=== PATIENT | female | born 1970 | race Caucasian/White ===

== ENCOUNTER 2017-08-04 16:03 | Observation (INO) ==
[2017-08-04] MEDS ORDERED: Aspirin 81 MG TAB.CHEW PO ONE (16:11)
[2017-08-04] MEDS ORDERED: Nitroglycerin 0.4 MG TAB.SUBL SL PRN (16:20)
[2017-08-04 17:07] LABS: Basophils # 0.1 K/mcL (0.0-0.2); Basophils % 0.5 %; Eosinophils # 0.5 K/mcL (0.0-0.6); Eosinophils % 5.1 %; Hematocrit 39.9 % (35.3-44.9); Hemoglobin 12.6 g/dL (11.5-15.4); Immature Granulocytes % 0.6 % (0-4); Immature Platelets 2.5 % (1.1-6.1); Lymphocytes # 2.5 K/mcL (0.6-4.6); Lymphocytes % 25.2 %; Mean Corpuscular HGB Conc 31.6 g/dL (31.6-35.5); Mean Corpuscular Hemoglobin 26.9 pg (28.0-33.3); Mean Corpuscular Volume 85.1 fL (83.0-100.0); Mean Platelet Volume 9.5 fL (9.4-12.4); Monocytes # 0.6 K/mcL (0.0-1.3); Monocytes % 5.5 %; Neutrophils # 6.3 K/mcL (1.6-8.9); Platelet Count 317 K/mcL (140-400); Red Blood Count 4.69 M/mcL (3.82-4.97); Red Cell Distribution Width 15.2 % (11.5-14.5); Segmented Neutrophils % 63.1 %
[2017-08-04 17:20] LABS: Alanine Aminotransferase 48 Units/L (0-55); Albumin 3.1 g/dL (3.5-5.0); Albumin/Globulin Ratio 0.6 (1.1-2.2); Alkaline Phosphatase 101 Units/L (38-126); Aspartate Amino Transferase 59 Units/L (5-34); BUN/Creatinine Ratio 10 (6-26); Bilirubin,Direct 0.2 mg/dL (0.0-0.5); Bilirubin,Indirect 0.2 mg/dL (0.0-1.2); Bilirubin,Total 0.4 mg/dL (0.2-1.2); Blood Urea Nitrogen 7 mg/dL (7-20); Carbon Dioxide 17 mEq/L (19-29); Chloride 105 mEq/L (98-109); Globulin 5.1 g/dL (2.4-3.5); Glucose 176 mg/dL (70-99); Lipase 56 Units/L (8-78); Osmolality,Calculated 288 (280-300); Potassium 3.6 mEq/L (3.5-4.5); Sodium 138 mEq/L (136-145); Total Protein 8.2 g/dL (6.0-8.3); eGFR For African Americans > 60 (> 60); eGFR For Non-African Americans > 60 (> 60)
--- NOTE | 2017-08-04 17:40 | Emergency Department Note ---
Disposition Clinical Impression: Chest wall pain, Unstable angina Chest pain Qualifiers: Chest pain type: precordial pain Qualified Code(s): R07.2 - Precordial pain Disposition: Admitted As Inpatient Condition: Fair Referrals: Juanita Jain CNP [Primary Care Provider] - Forms: ED Satisfaction Letter Time of Disposition: 19:36 Chest Pain HPI - General Chief Complaint: ED Chest Pain Stated Complaint: CP Time Seen by Provider: 08/04/17 16:10 Source: patient Limitations: no limitations Vital Signs Reviewed: Yes Nursing Notes Reviewed: Yes - History of Present Illness HPI Narrative: 46-year-old female was chest pain. Parents today with exertional component and diaphoresis without radiation. Patient's had chest pain issues in the past and had stress tests 1 day ago. Severity scale (1-10): 0 - Related Data Home Medications Medication Instructions Recorded Confirmed Aspirin Enteric Coated [Aspirin EC] 81 mg PO QAM 07/01/15 08/04/17 Butalbital/Aspirin/Caffeine 1 cap PO Q4H PRN 07/01/15 08/04/17 [Fiorinal 50-325-40 mg Capsule] Lisinopril/Hydrochlorothiazide 1 tab PO QAM 07/01/15 08/04/17 [Zestoretic 20-12.5 mg Tablet] Metoprolol [Lopressor] 50 mg PO BID 07/01/15 08/04/17 Omeprazole [PriLOSEC] 20 mg PO BID 07/01/15 08/04/17 metFORMIN [Glucophage] 1,000 mg PO BID 07/01/15 08/04/17 Insulin ASPART [NovoLOG] 30 - 50 unit SQ TIDWM 08/04/17 08/04/17 Insulin Glargine,Hum.rec.anlog 50 unit SQ HS 08/04/17 08/04/17 [Lantus Solostar] Linagliptin [Tradjenta] 5 mg PO DAILY 08/04/17 08/04/17 Pioglitazone [Actos] 30 mg PO DAILY 08/04/17 08/04/17 Previous Rx's Medication Instructions Recorded Sucralfate [Carafate] 1 gm PO QIDAC #120 tablet 07/03/15 Ondansetron ODT [Zofran ODT] 4 mg SL Q4HR PRN #20 tab.rapdis 02/25/16 Allergies Allergy/AdvReac Type Severity Reaction Status Date / Time No Known Allergies Allergy Verified 08/04/17 16:09 Chest Pain PMH - Past Medical History Medical history: Reports: diabetes, hyperlipidemia, hypertension Surgical history: Reports: appendectomy, cholecystectomy, other (EGD-11/2014: no significant findings. ) Psychiatric history: Reports: no psych history - Social History Smoking Status: Never smoker Alcohol use: Reports: none Drug use: Reports: none Physical Exam - General Limitations: no limitations General appearance: alert, in no apparent distress Course Vital Signs Temperature 98.3 F 08/04/17 16:06 Pulse Rate 79 08/04/17 16:06 Respiratory Rate 18 08/04/17 16:06 Blood Pressure 124/83 08/04/17 16:06 O2 Sat by Pulse Oximetry 96 08/04/17 16:06 Temperature 98.3 F 08/04/17 16:06 Pulse Rate 76 08/04/17 18:57 Respiratory Rate 23 08/04/17 18:57 Blood Pressure 138/81 08/04/17 18:57 O2 Sat by Pulse Oximetry 95 08/04/17 18:57 Oxygen Delivery Oxygen Delivery Room Air Chest Pain - MDM Narrative Medical decision making narrative: Patient is presents with chest pain on exertion that persists for unstable angina/ACS/KS. Patient also has some epigastric pain concerning for possible pancreatitis. Patient was given 325 aspirin, nitroglycerin but still has pain which is down from 10/10-4/10 lower sternum that is tender to palpation. When patient does Toradol for possible chest wall pain as well and 4 mg morphine. Discussed with patient that she will need to be admitted for overnight observation. Patient accepts this is for admission. Patient's troponin was -0.00 and patient's EKG showed mild ST depression in leads V2, V3 and V4 with T-wave inversions. She remembers can be seen on previous EKG similar morphology taken 06/05/2015. Chest x-ray showed no acute findings. Heartscore 6 Dr. Blakely the hospitalist accepted patient for admission at 1919 hrs - Lab Data Lab results reviewed: Yes I reviewed the patient's lab results. Lab results narrative: Short CBC 08/04/17 Range/Units 16:58 WBC 10.0 (4.3-11.1) K/mcL Hgb 12.6 (11.5-15.4) g/dL Hct 39.9 (35.3-44.9) % Plt Count 317 (140-400) K/mcL Neutrophils # 6.3 (1.6-8.9) K/mcL BMP 08/04/17 Range/Units 16:58 Sodium 138 (136-145) mEq/L Potassium 3.6 (3.5-4.5) mEq/L Chloride 105 (98-109) mEq/L Carbon Dioxide 17 L (19-29) mEq/L BUN 7 (7-20) mg/dL Creatinine 0.72 (0.57-1.11) mg/dL Glucose 176 H (70-99) mg/dL Calcium 9.0 (8.6-10.8) mg/dL Cardiac Enzymes 08/04/17 Range/Units 16:58 Troponin I 0.00 (0-0.03) ng/mL Liver Function 08/04/17 Range/Units 16:58 Total Bilirubin 0.4 (0.2-1.2) mg/dL Direct Bilirubin 0.2 (0.0-0.5) mg/dL AST 59 H (5-34) Units/L ALT 48 (0-55) Units/L Alkaline Phosphatase 101 (38-126) Units/L Albumin 3.1 L (3.5-5.0) g/dL Result diagrams: 08/04/17 16:58 08/04/17 16:58 Lab Results 08/04/17 08/04/17 08/04/17 Range/Units 16:58 16:58 16:58 WBC 10.0 (4.3-11.1) K/mcL RBC 4.69 (3.82-4.97) M/mcL Hgb 12.6 (11.5-15.4) g/dL Hct 39.9 (35.3-44.9) % MCV 85.1 (83.0-100.0) fL MCH 26.9 L (28.0-33.3) pg MCHC 31.6 (31.6-35.5) g/dL RDW 15.2 H (11.5-14.5) % Plt Count 317 (140-400) K/mcL MPV 9.5 (9.4-12.4) fL Immature Gran % 0.6 (0-4) % Seg Neutrophils % 63.1 % Lymphocytes % 25.2 % Monocytes % 5.5 % Eosinophils % 5.1 % Basophils % 0.5 % Neutrophils # 6.3 (1.6-8.9) K/mcL Lymphocytes # 2.5 (0.6-4.6) K/mcL Monocytes # 0.6 (0.0-1.3) K/mcL Eosinophils # 0.5 (0.0-0.6) K/mcL Basophils # 0.1 (0.0-0.2) K/mcL Immature Plt Fraction 2.5 (1.1-6.1) % Sodium 138 (136-145) mEq/L Potassium 3.6 (3.5-4.5) mEq/L Chloride 105 (98-109) mEq/L Carbon Dioxide 17 L (19-29) mEq/L BUN 7 (7-20) mg/dL Creatinine 0.72 (0.57-1.11) mg/dL Est GFR ( Amer) > 60 (> 60) Est GFR (Non-Af Amer) > 60 (> 60) BUN/Creatinine Ratio 10 (6-26) Glucose 176 H (70-99) mg/dL Calculated Osmolality 288 (280-300) Calcium 9.0 (8.6-10.8) mg/dL Total Bilirubin 0.4 (0.2-1.2) mg/dL Direct Bilirubin 0.2 (0.0-0.5) mg/dL Indirect Bilirubin 0.2 (0.0-1.2) mg/dL AST 59 H (5-34) Units/L ALT 48 (0-55) Units/L Alkaline Phosphatase 101 (38-126) Units/L Troponin I 0.00 (0-0.03) ng/mL Serum Total Protein 8.2 (6.0-8.3) g/dL Albumin 3.1 L (3.5-5.0) g/dL Globulin 5.1 H (2.4-3.5) g/dL Albumin/Globulin Ratio 0.6 L (1.1-2.2) Lipase 56 (8-78) Units/L - Radiology Data Radiology results reviewed: Yes I reviewed the patient's radiology results. Abdomen/Pelvis CT 08/04/17 16:25 IMPRESSION: Negative noncontrast study. D/ / Jerica Neal Cha, MD / Jerica Neal Cha, MD Interpreting Provider: Jerica Neal Cha, MD Chest X-Ray 08/04/17 17:38 IMPRESSION: No acute process. D/ / Vincent Edmonds MD / Vincent Edmonds MD Interpreting Provider: Vincent Edmonds MD - EKG Data EKG attestation: Yes I reviewed and interpreted this EKG. EKG results narrative: EKG taken to August 2017 1613 hrs. shows a sinus rhythm at a rate of [address] depressions that are mild and V2 V3 and V4. Patient is seen with inversions in anterior leads which are seen on previous EKG taken at 07/02 Heart Score - Score History: Highly Suspicious EKG: Non Specific repolarisation Disturbance Age: 45-65 Risk Factors: Equal/Greater than 3 risk factor or history of atherosclerotic disease Troponin: Less than normal limit HEART Score Total: 6 Attestation Statement - Attestation Attestation: Patient was seen with resident physician. I reviewed the history, physical, assessment and plan, and agree with the findings. I also personally evaluated this patient and had [id number] time with this patient. 46-year-old female presents to the emergency department with continuation of chest pain. She said she has had intermittent chest pain mid sternal area pressure balloon-type sensation that been intermittent lasting minutes at a time for the last month or so. Patient stress test yesterday she is unsure what the results of the procedure were. She also has some epigastric abdominal discomfort. She denies fevers chills nausea or vomiting. She has not had shortness of breath. On exam vital signs are stable. ENT is unremarkable. Heart and lungs are normal. Abdomen is soft and nontender. Extremities are unremarkable neurologically the patient is intact. ED course workup for chest pain was essentially negative. EKG showed no acute ischemic changes. Chest x-ray was negative and a CT scan of the abdomen and pelvis also did not show acute abnormalities. Patient's pain was improved with nitroglycerin. With the patient's continuation of chest pain we will admit to the hospitalist service for further evaluation treatment. Agree with the resident physician assessment and plan.
[2017-08-04] MEDS ORDERED: Ketorolac 15 MG/ML VIAL IVP ONE (19:30)
[2017-08-04] MEDS ORDERED: *HR* Morphine 2 MG/ML SYRINGE IVP ONE (19:31)
[2017-08-04] MEDS ORDERED: FIORINAL PO PRN (20:14)
[2017-08-04] MEDS ORDERED: Ondansetron ODT 4 MG TAB.RAPDIS SL PRN (20:14)
[2017-08-04] MEDS ORDERED: *HR* Dextrose 50 % in Water (Syg) 50 ML SYRINGE IVP PRN (20:16)
[2017-08-04] MEDS ORDERED: Dextrose Gel 15 GM PO PRN ×2 (20:16)
[2017-08-04] MEDS ORDERED: *HR* Morphine 2 MG/ML SYRINGE IVP PRN (20:16)
[2017-08-04] MEDS ORDERED: Naloxone 0.4 MG/ML INJ IVP PRN (20:16)
[2017-08-04] MEDS ORDERED: D5% in Water 1,000 ML IVC PRN (20:16)
--- NOTE | 2017-08-04 20:42 | Internal Med History&Physical ---
Date of Encounter: 08/04/17 Time of Encounter: 19:20 Internal Medicine - H&P: HPI History of present illness: Ms. Rausch is a 46 year old female Past Med Surg Social Fam HX - Past Medical History Medical history: diabetes, hyperlipidemia, hypertension Psychiatric history: no psych history - Past Surgical History Surgical History: appendectomy, cholecystectomy, other (EGD-11/2014: no significant findings. ) - Social History Smoking Status: Never smoker Smokeless Tobacco Status: No Alcohol use: none Drug use: none - Family History Mother Hx Family Respiratory Disorders: Yes Internal Medicine - H&P: Meds Aspirin Enteric Coated [Aspirin EC] 81 mg PO QAM 07/01/15 [History] Butalbital/Aspirin/Caffeine [Fiorinal 50-325-40 mg Capsule] 1 cap PO Q4H PRN [History] Lisinopril/Hydrochlorothiazide [Zestoretic 20-12.5 mg Tablet] 1 tab PO QAM 07/01 [History] Metoprolol [Lopressor] 50 mg PO BID 07/01/15 [History] Omeprazole [PriLOSEC] 20 mg PO BID 07/01/15 [History] metFORMIN [Glucophage] 1,000 mg PO BID 07/01/15 [History] Sucralfate [Carafate] 1 gm PO QIDAC #120 tablet 07/03/15 [Rx] Ondansetron ODT [Zofran ODT] 4 mg SL Q4HR PRN #20 tab.rapdis 02/25/16 [Rx] Insulin ASPART [NovoLOG] 30 - 50 unit SQ TIDWM 08/04/17 [History] Insulin Glargine,Hum.rec.anlog [Lantus Solostar] 50 unit SQ HS 08/04/17 [History ] Linagliptin [Tradjenta] 5 mg PO DAILY 08/04/17 [History] Pioglitazone [Actos] 30 mg PO DAILY 08/04/17 [History] 3 Allergy/AdvReac Type Severity Reaction Status Date / Time No Known Allergies Allergy Verified 08/04/17 16:09 All Systems PM: A 10-system review of systems was performed and is negative for pertinent findings except as documented above in the HPI. - Constitutional Vitals: Temp Pulse Resp BP Pulse Ox 98 F 72 16 122/68 95 08/04/17 20:30 08/04/17 20:30 08/04/17 20:30 08/04/17 20:30 08/04/17 20:30 Internal Med - H&P Results - Labs CBC & Chem 7: 08/04/17 16:58 08/04/17 16:58
--- NOTE | 2017-08-04 20:55 | Internal Med History&Physical ---
<Leonard Boogie - Last Filed: 08/04/17 20:51> Date of Encounter: 08/04/17 Time of Encounter: 20:52 Assessment and Plan (1) Chest pain, rule out acute myocardial infarction Current visit: Yes Status: Ruled-out Presents with atypical CP. Has multiple rolan factors including DM, HLD, HTN and obesity. Heart score of 6. She remains hemodynamically stable. CP has decreased from 10/10 to 4/10 with SL nitro. Troponin negative 0.00. Recent stress 07/20 negative. [facility]. She is also concerned for excess gas stating " i burp all of the time", and is having epigastic pain with epigastric tenderness. I believe that a GI source of her pain is also possible. She may need an outpatient EGD at some point if cardiac workup remains negative. Lipase 56 mild elevation in AST 59. Serial troponin Consult cardiology d/t risk factors she is at high risk for CAD; may need a LHC in the near future echocardiogram continuous tele continuous o2 monitoring respiratory support with NC CBC, BMP in the morning. (2) HTN (hypertension) Current visit: Yes Status: Chronic H/o, currently stable. Continue lisinopril/hctz and BB Qualifiers: Hypertension type: essential hypertension Qualified Code(s): I10 - Essential (primary) hypertension (3) Diabetes Current visit: Yes Status: Chronic LSSIC, continue basal insulin at home dose, AC/HS accuchecks with diabetic/ cardiac diet. Qualifiers: Diabetes mellitus type: type 2 Diabetes mellitus complication status: without complication Diabetes mellitus custodial insulin use: with terminal operator use Qualified Code(s): E11.9 - Type 2 diabetes mellitus without complications ; Z79.4 - penitentiary (current) use of insulin; Z79.4 - computer terminal operator (current) use of insulin; Z79.4 - penitentiary (current) use of insulin; Z79.4 - computer terminal operator ( current) use of insulin (4) DVT prophylaxis Current visit: Yes Status: Resolved Heparin SC 5000u BID Internal Medicine - H&P: HPI Admitted From: Home Plans for Post Hospital Care: Home History of present illness: Ms. Rausch is a 46 year old female with past medical history of diabetes, HLD, HTN, appendectomy and cholecystectomy. She presents today to [facility] with exertional chest pain described as intermittent, sharp and substernal with radiation to the mid back. The patient is having intermittent chest pain off and on for the last couple days. Stress test was completed on was unremarkable. She denies any fever, chills, abdominal pain, nausea, vomiting, diaphoresis or unilateral extremity swelling or pain. She has multiple risk factors for heart score is 6. Due to multiple risk factors she is being admitted for further evaluation for CP r/o Past Med Surg Social Fam HX - Past Medical History Medical history: diabetes, hyperlipidemia, hypertension Psychiatric history: no psych history - Past Surgical History Surgical History: appendectomy, cholecystectomy, other (EGD-11/2014: no significant findings. ) - Social History Smoking Status: Never smoker Smokeless Tobacco Status: No Alcohol use: none Drug use: none - Family History Mother Hx Family Respiratory Disorders: Yes Internal Medicine - H&P: Meds Aspirin Enteric Coated [Aspirin EC] 81 mg PO QAM 07/01/15 [History] Butalbital/Aspirin/Caffeine [Fiorinal 50-325-40 mg Capsule] 1 cap PO Q4H PRN [History] Lisinopril/Hydrochlorothiazide [Zestoretic 20-12.5 mg Tablet] 1 tab PO QAM 07/01 [History] Metoprolol [Lopressor] 50 mg PO BID 07/01/15 [History] Omeprazole [PriLOSEC] 20 mg PO BID 07/01/15 [History] metFORMIN [Glucophage] 1,000 mg PO BID 07/01/15 [History] Sucralfate [Carafate] 1 gm PO QIDAC #120 tablet 07/03/15 [Rx] Ondansetron ODT [Zofran ODT] 4 mg SL Q4HR PRN #20 tab.rapdis 02/25/16 [Rx] Insulin ASPART [NovoLOG] 30 - 50 unit SQ TIDWM 08/04/17 [History] Insulin Glargine,Hum.rec.anlog [Lantus Solostar] 50 unit SQ HS 08/04/17 [History ] Linagliptin [Tradjenta] 5 mg PO DAILY 08/04/17 [History] Pioglitazone [Actos] 30 mg PO DAILY 08/04/17 [History] 3 Allergy/AdvReac Type Severity Reaction Status Date / Time No Known Allergies Allergy Verified 08/04/17 16:09 All Systems PM: A 10-system review of systems was performed and is negative for pertinent findings except as documented above in the HPI. - Constitutional Constitutional: fatigue, no chills, no fever(s), no night sweats, no weakness - Cardiovascular Cardiovascular ROS IM: chest pain, dyspnea on exertion, lightheadedness, palpitations, no diaphoresis, no dyspnea, no edema, no irregular heart rhythm, no syncope - Respiratory Respiratory: no cough, no dyspnea, no wheezing, no excessive phlegm production - Gastrointestinal Gastrointestinal: abdominal pain (Epigastric), no diarrhea, no hematemesis, no hematochezia, no melena, no nausea, no vomiting - Genitourinary Genitourinary: no change in urinary stream, no dysuria, no flank pain, no hematuria - Musculoskeletal Musculoskeletal ROS IM: no numbness, no tingling - Integumentary Integumentary IM: no rash, no unusual bruising - Neurological Neurological ROS: no confusion, no convulsions, no focal weakness, no numbness, no tingling, no tremor(s) - Hematologic/Lymphatic Hematologic/Lymphatic: no easy bruising - Constitutional Vitals: Temp Pulse Resp BP Pulse Ox 98 F 72 16 122/68 95 08/04/17 20:30 08/04/17 20:30 08/04/17 20:30 08/04/17 20:30 08/04/17 20:30 General appearance: Present: cooperative, A&O X 3, no acute distress, answers questions appropriately - Head Head exam: Present: atraumatic, normocephalic - Eye Eye exam: Present: PERRL, conjuntiva pink, sclera anicteric Pupils: Present: PERRL - Neck Neck exam general surgery: Present: supple, trachea midline. Absent: lymphadenopathy - Respiratory Respiratory exam: Present: CTAB. Absent: accessory muscle use, rales, rhonchi, wheezes - Cardiovascular Cardiovascular exam: Present: RRR, +S1, +S2. Absent: diastolic murmur, gallop, rubs, systolic murmur - GI/Abdominal GI/Abdominal exam: Present: normal bowel sounds, soft, no peritoneal signs. Absent: distended, tenderness - Extremities Exam Extremities exam: Present: warm, radial pulses palpable and symmetrical. Absent : calf tenderness, cyanotic, pedal edema - Neurological Exam Neurological exam: Present: CN II-XII intact, oriented X3, no focal deficits. Absent: pronater drift, facial droop, speech deficit - Skin Skin exam: Present: dry, intact Internal Med - H&P Results - Labs CBC & Chem 7: 08/04/17 16:58 08/04/17 16:58 - EKG Data -: EKG Interpreted by Myself EKG shows normal: sinus rhythm Rate: normal - EKG Data Prior EKG available for review: yes When compared to previous EKG: there is no significant change - Diagnostic Studies Chest x-ray Status: image reviewed by me Additional comments: No acute pulmonary process <Rhett Blakely - Last Filed: 08/04/17 22:43> Date of Encounter: 08/04/17 Time of Encounter: 22:37 - Constitutional Vitals: Temp Pulse Resp BP Pulse Ox 98 F 72 16 122/68 95 08/04/17 20:30 08/04/17 20:30 08/04/17 20:30 08/04/17 20:30 08/04/17 20:30 General appearance: Present: A&O X 3, no acute distress - Eye Eye exam: Present: PERRL. Absent: scleral icterus - Respiratory Respiratory exam: Present: CTAB. Absent: rales, rhonchi, wheezes - Cardiovascular Cardiovascular exam: Present: RRR, +S1, +S2. Absent: diastolic murmur, systolic murmur - GI/Abdominal GI/Abdominal exam: Present: normal bowel sounds, soft. Absent: hepatomegaly, splenomegaly, tenderness - Extremities Exam Extremities exam: Present: warm. Absent: calf tenderness, pedal edema Internal Med - H&P Results - Labs CBC & Chem 7: 08/04/17 16:58 08/04/17 16:58 - EKG Data -: EKG Interpreted by Myself EKG shows normal: sinus rhythm - EKG Data When compared to previous EKG: there is no significant change EKG comments: 08/04/17 22:39 NSR; subtle, non-specific ST-T changes anteriorly -- unchanged - Attending Attestation I discussed the patient PECHANGA, PMH, ROS, lab data, and exam findings with Leonard Boogie CNP. I then saw and examined patient independently as well. Patient history is suggestive of GI source of chest pain. She has no gall bladder or appendix. She has significant GERD and may need EGD in the near future. We will optimize her GERD treatment. Stress test was negative the other day. However, given her recurrent chest pain and significant risk factors, patient is admitted for chest pain. We are consulting cardiology as she may warrant LHC. Other than my comments above and noted exam findings, I agree with Leonard' s assessment and plan.
[2017-08-04 20:57] LABS: Hemoglobin A1C 7.1 %
[2017-08-04] MEDS ORDERED: Insulin DETEMIR 100 UNIT/ML X5UNITS SQ SCH (21:00)
[2017-08-04] MEDS ORDERED: Insulin LISPRO 300 UNITS/3 ML VIAL SQ SCH (21:00)
[2017-08-04] MEDS ORDERED: Temazepam 15 MG CAPSULE PO PRN (21:47)
[2017-08-04] MEDS: Sucralfate 1 GM TABLET PO SCH (21:58)
[2017-08-05] MEDS ORDERED: Ibuprofen 400 MG TABLET PO ONE (05:26)
[2017-08-05] MEDS ORDERED: *HR* Heparin 5,000 UNIT/ML VIAL SQ SCH (06:00)
[2017-08-05] MEDS: Insulin LISPRO 300 UNITS/3 ML VIAL SQ SCH ×2 (08:38→11:27)
[2017-08-05] MEDS ORDERED: Lisinopril-HCTZ 20-12.5mg TABLET PO SCH (09:00)
[2017-08-05] MEDS ORDERED: Aspirin Enteric Coated 81 MG Tablet PO SCH (09:00)
[2017-08-05] MEDS: Sucralfate 1 GM TABLET PO SCH ×2 (09:06→11:36)
[2017-08-05 10:14] LABS: Basophils # 0.1 K/mcL (0.0-0.2); Basophils % 0.7 %; Eosinophils # 0.5 K/mcL (0.0-0.6); Eosinophils % 4.8 %; Hemoglobin 12.2 g/dL (11.5-15.4); Immature Granulocytes % 0.6 % (0-4); Lymphocytes # 2.4 K/mcL (0.6-4.6); Lymphocytes % 22.6 %; Mean Corpuscular HGB Conc 31.3 g/dL (31.6-35.5); Mean Corpuscular Hemoglobin 26.6 pg (28.0-33.3); Mean Platelet Volume 9.5 fL (9.4-12.4); Monocytes # 0.5 K/mcL (0.0-1.3); Monocytes % 4.7 %; Neutrophils # 6.9 K/mcL (1.6-8.9); Platelet Count 298 K/mcL (140-400); Red Blood Count 4.59 M/mcL (3.82-4.97); Red Cell Distribution Width 15.4 % (11.5-14.5); Segmented Neutrophils % 66.6 %
[2017-08-05] MEDS ORDERED: Ibuprofen 400 MG TABLET PO PRN (10:50)
[2017-08-05 10:53] VITALS: BP 107/68
--- NOTE | 2017-08-05 12:12 | Cardiology Consult Note ---
Date of Encounter: 08/05/17 Time of Encounter: 12:00 Assessment and Plan (1) Chest pain, rule out acute myocardial infarction Current Visit: No Status: Acute Per Cardiology: Hx of non-obstructive CAD-- per review of records has non-obstructive from [facility] around 2010. Atypical CP, reproducible upon exam. Trops. - x 3. ST last week negative for ischemia. Echo pending. No further ischemic eval warranted. Patient agreeable. Discussed with Dr. Theodora Mederos. (2) Abnormal EKG Current Visit: No Status: Ruled-out Per Cardiology: Hx of abnormal ECG, current ECG comparable to baseline. Discussion w patient/family: The assessment and plan as outlined above was discussed with the patient and/or family members who expressed understanding and agreement. All questions were answered. Thank you for involving us in the care of your patient. Please call with any questions. History of Present Illness Consult date: 08/05/17 Requesting physician: Rhett Blakely Consult reason: Atypical CP Chief complaint: CP History of present illness: Ms. Rausch is a 46 year old female with a relevant past medical history of hypertension, hyperlipidemia, DM 2, nonobstructive CAD. Cardiology consult for atypical chest pain. Patient seen with family at bedside. She reports midsternal epigastric pain with movement worsening over the past one year that can occur at rest or with activities. She reports yesterday was bending over getting clothes out of her dryer experienced her chest discomfort. Midsternal epigastric pain reproducible today with palpation. She reports the symptoms occur about once every few months and lasts for a few seconds to subside. She denies any exertional chest pain. She reports with these symptoms she does feel anxious and short of breath. Does report had catheterization at outside hospital a few years ago with no stenting. She denies any dizziness, lightheadedness, syncope, falls. Denies any active bleeding or blood loss. Denies any cold-like symptoms. Reports history of GERD. Past Med Surg Social Fam HX - Past Medical History Attestation: Yes The following information was validated with the patient. Source: patient, old records reviewed, obtained from family Medical history: diabetes, hyperlipidemia, hypertension Psychiatric history: no psych history - Past Surgical History Surgical History: appendectomy, cholecystectomy, other (EGD-11/2014: no significant findings. ) - Social History Smoking Status: Never smoker Smokeless Tobacco Status: No Alcohol use: none Drug use: none - Family History Mother Name: Kitty Villanueva Cause of : respiratory issues Hx Family Respiratory Disorders: Yes (COPD) Medications and Allergies Aspirin Enteric Coated [Aspirin EC] 81 mg PO QAM 07/01/15 [History] Butalbital/Aspirin/Caffeine [Fiorinal 50-325-40 mg Capsule] 1 cap PO Q4H PRN [History] Lisinopril/Hydrochlorothiazide [Zestoretic 20-12.5 mg Tablet] 1 tab PO QAM 07/01 [History] Metoprolol [Lopressor] 50 mg PO BID 07/01/15 [History] Omeprazole [PriLOSEC] 20 mg PO BID 07/01/15 [History] metFORMIN [Glucophage] 1,000 mg PO BID 07/01/15 [History] Sucralfate [Carafate] 1 gm PO QIDAC #120 tablet 07/03/15 [Rx] Ondansetron ODT [Zofran ODT] 4 mg SL Q4HR PRN #20 tab.rapdis 02/25/16 [Rx] Insulin ASPART [NovoLOG] 30 - 50 unit SQ TIDWM 08/04/17 [History] Insulin Glargine,Hum.rec.anlog [Lantus Solostar] 50 unit SQ HS 08/04/17 [History ] Linagliptin [Tradjenta] 5 mg PO DAILY 08/04/17 [History] Pioglitazone [Actos] 30 mg PO DAILY 08/04/17 [History] 3 Allergy/AdvReac Type Severity Reaction Status Date / Time No Known Allergies Allergy Verified 08/04/17 16:09 All Systems Review: A 10-system review of systems was performed and is negative for pertinent findings except as documented above in the HPI. - Cardiovascular Cardiovascular: chest pain at rest Physical Examination Vital Signs, Last 4 Hours Temp Pulse Resp BP Pulse Ox 08/05/17 10:52 98.0 F 62 15 107/68 08/05/17 09:12 97 General: Conversant, No Apparent Distress HEENT: Atraumatic, Normocephaly, Mucus Membranes Moist Neck: No JVD, Normal carotid pulses Cardiac: Reg Rate and Rhythm, Normal S1 and S2, No Murmur Lungs: Normal Breath Sounds, No Wheeze, Rales, Rhonchi Neuro: Alert and responsive, No focal deficits noted Abdomen: Soft, Non-Tender Skin: No rashes noted on visualized skin Musculoskeletal: No Chest Wall Tenderness, Other (misternal epigastric pain) Extremities: No Clubbing, No Cyanosis, No Edema, Normal Pulses Results 08/05/17 09:55 08/04/17 16:58 Lab Results 08/04/17 08/05/17 08/05/17 22:33 07:19 09:55 WBC 10.4 Hgb 12.2 Hct 39.0 Plt Count 298 Troponin I 0.00 0.01 - Imaging and Cardiology Stress Test: report reviewed Echo: pending Cardiac cath: report reviewed - EKG Interpretation EKG results cardiology: personally reviewed Consult Discharge Plan - Plan Referrals: Juanita Jain, VON [Primary Care Provider] -
[2017-08-05 12:53] LABS: BUN/Creatinine Ratio 14 (6-26); Blood Urea Nitrogen 10 mg/dL (7-20); Calcium 9.2 mg/dL (8.6-10.8); Carbon Dioxide 31 mEq/L (19-29); Chloride 104 mEq/L (98-109); Chol/HDL Ratio 6.3 (0-4.9); Cholesterol 241 mg/dL (< 200); Glucose 134 mg/dL (70-99); HDL Cholesterol 38 mg/dL (40-59); LDL Cholesterol,Calculated 168 mg/dL (0-99); Osmolality,Calculated 291 (280-300); Potassium 3.6 mEq/L (3.5-4.5); Sodium 140 mEq/L (136-145); Triglycerides 175 mg/dL (< 150); eGFR For African Americans > 60 (> 60); eGFR For Non-African Americans > 60 (> 60)
--- NOTE | 2017-08-05 15:27 | Discharge Summary ---
Date of Encounter: 08/05/17 Time of Encounter: 15:26 - Discharge Diagnosis (1) Chest pain, rule out acute myocardial infarction Priority: Primary Status: Acute (2) Morbid obesity Priority: Secondary Status: Chronic (3) HTN (hypertension) Priority: Secondary Status: Chronic Qualifiers: Hypertension type: essential hypertension Qualified Code(s): I10 - Essential (primary) hypertension (4) Diabetes Priority: Secondary Status: Chronic Qualifiers: Diabetes mellitus type: type 2 Diabetes mellitus complication status: with unspecified complications Diabetes mellitus rat exterminator insulin use: with shelter use Qualified Code(s): E11.8 - Type 2 diabetes mellitus with unspecified complications; Z79.4 - residential (current) use of insulin; Z79.4 - long term care social worker ( current) use of insulin; Z79.4 - residential (current) use of insulin; Z79.4 - residential (current) use of insulin - Discharge Medications Home Medications: Aspirin Enteric Coated [Aspirin EC] 81 mg PO QAM 07/01/15 [History] Butalbital/Aspirin/Caffeine [Fiorinal 50-325-40 mg Capsule] 1 cap PO Q4H PRN [History] Lisinopril/Hydrochlorothiazide [Zestoretic 20-12.5 mg Tablet] 1 tab PO QAM 07/01 [History] Metoprolol [Lopressor] 50 mg PO BID 07/01/15 [History] Omeprazole [PriLOSEC] 20 mg PO BID 07/01/15 [History] metFORMIN [Glucophage] 1,000 mg PO BID 07/01/15 [History] Sucralfate [Carafate] 1 gm PO QIDAC #120 tablet 07/03/15 [Rx] Ondansetron ODT [Zofran ODT] 4 mg SL Q4HR PRN #20 tab.rapdis 02/25/16 [Rx] Insulin ASPART [NovoLOG] 30 - 50 unit SQ TIDWM 08/04/17 [History] Insulin Glargine,Hum.rec.anlog [Lantus Solostar] 50 unit SQ HS 08/04/17 [History ] Linagliptin [Tradjenta] 5 mg PO DAILY 08/04/17 [History] Pioglitazone [Actos] 30 mg PO DAILY 08/04/17 [History] Allergies/Adverse Reactions: 3 Allergy/AdvReac Type Severity Reaction Status Date / Time No Known Allergies Allergy Verified 08/04/17 16:09 Procedures/tests Complete & Pending: Procedures Performed prior 72 hours Category Date Time Status EV echocardiogram Stat Y 08/04/17 20:13 Completed Date of admission: 08/04/17 19:50 Primary care physician: Juanita Jain CNP Consults: 08/04/17 20:37 Consult to Cardiology [CONS] Routine Comment: Consulting Provider: Cardiology Kennedi Reason for Consult: ATYPICAL CP Time Notified: 20:41 Call Completed: Yes Discharging clinician: Karley Velazquez Anticipated date of discharge: 08/05/17 - Patient Status Disposition: Home, Self-Care Condition: Good Functional capacity at discharge: independent ambulation Overall status at discharge: patient is back to baseline - Discharge Instructions Follow Up With: Juanita Jain CNP [Primary Care Provider] - Additional Instructions: F/up with PCP in 1-2 weeks - Diet and Activity Activity: resume usual activities as tolerated Diet: diabetic diet, low fat, low cholesterol, low salt diet Hospital course: Ms. Rausch is a 46 year old female - Time Spent with Patient Total time spent providing and/or coordinating discharge services: Greater than 30 minutes (40 min) - Constitutional Vitals: Temp Pulse Resp BP Pulse Ox 98.0 F 62 15 107/68 97 08/05/17 10:52 08/05/17 10:52 08/05/17 10:52 08/05/17 10:52 08/05/17 09:12 General appearance: Present: A&O X 3, morbidly obese, answers questions appropriately - Respiratory Respiratory exam: Present: CTAB. Absent: accessory muscle use, rales, rhonchi, wheezes - Cardiovascular Cardiovascular exam: Present: RRR, +S1, +S2. Absent: diastolic murmur, gallop, rubs, systolic murmur
--- NOTE | 2017-08-08 06:57 | Electrocardiograph Report ---
[address] [place], [place] [address] Test Date: 2017-08-04 Pat Name: Aida Rausch Department: [id number] Room: 3B Gender: F Entry Level Accounting Clerk: ANGEL : 1970 Requested By: Bandar Kauffman Order Number: [id number] Reading MD: Debo Mederos Measurements Intervals [place] Rate: 83 P: 25 VT: 139 QRS: 52 QRSD: 88 T: 27 QT: 381 QTc: 420 Interpretive Statements SINUS RHYTHM NONSPECIFIC ST & T-WAVE ABNORMALITY Electronically Signed On 08-08-2017 6:55:42 EST by Debo Mederos
== END 2017-08-05 16:15 | disposition home or self-care (01) ==
LOC: 3BNU 16:03 → EMEROO 16:03 → SUATTDRO 19:50 → 3BNU 20:14
PROVIDERS: ADMIT Nurse Practitioner; ATTEND Internal Medicine